=== PATIENT | female | born 1960 | race Caucasian/White ===

== ENCOUNTER 2018-11-22 10:31 | Day surgery (SDC) | payer OTHER, SELFPAY ==
[2018-11-22 10:56] VITALS: BP 117/77; PULSE 87; RESP 17; TEMP 37.1; O2SAT 95; BMI 29.6
[2018-11-22] MEDS: SODIUM CHLORIDE 0.9% 1,000 ML 100 ML IV (11:01)
--- NOTE | 2018-11-22 11:21 | P.HP_ITS ---
History of Present Illness Date Patient Seen: 11/22/18 Time Patient Seen: 11:19 Chief complaint: [id number] Narrative: Very pleasant and healthy 58-year-old lady who is here for screening colonoscopy. She reports her last colonoscopy was about 10 years ago and she had a benign polyp removed at that time. She denies any problems or symptoms related to the function of GI tract. She needs a colonoscopy as part of a health maintenance program Patient History Medical History Abnormal Pap smear of cervix (Chronic ~1989) Acne (Chronic ~1970) Anemia (Chronic) Ankle pain (Chronic ~2016) Benign familial tremor (Chronic) Cervical spine disease (Chronic) Colon polyps (Chronic ~2012) Depression (Chronic ~2006) Hay fever (Chronic ~2004) Hearing loss (Chronic ~2006) Osteoarthritis (Chronic) Plantar warts (Chronic ~1999) Shoulder pain (Chronic ~2006) Tinnitus (Chronic ~2006) Chicken pox (Resolved ~1962) History of basal cell carcinoma (BCC) of skin (Resolved 1989) Measles (Resolved) Mumps (Resolved) Surgical History Anesthesia (Resolved) BCC (basal cell carcinoma of skin) (Resolved 1989) History of eye surgery (Resolved ~2006) History of shoulder surgery (Resolved ~2007) History of varicose vein stripping (Resolved ~2008) Family History Father Kidney stones Intestinal bleeding Cancer Stroke Mother Glaucoma Heart disease History of angioplasty Hypertension Sister Hypothyroidism Brother Osteoarthritis Brother HIV antibody positive Social History household members: children lives independently: Yes caregiver/support person: No housing: house pets and animals: Yes (Cat) education level: college occupational status: employed current occupational exposures/hazards: No seatbelt use: always Smoking Status: Never smoker second hand exposure: No alcohol intake: current substance use type: does not use Family & Social History Family History Father Kidney stones Intestinal bleeding Cancer Stroke Mother Glaucoma Heart disease History of angioplasty Hypertension Sister Hypothyroidism Brother Osteoarthritis Brother HIV antibody positive Social History: household members children lives independently Yes caregiver/support person No Tobacco & Substance use: Smoking Status Never smoker alcohol intake current Meds Home Medications Medication Instructions Recorded Confirmed Type benzonatate [Tessalon Perles] 100 mg PO BIDP PRN #30 cap 11/06/17 Rx Allergies Allergy/AdvReac Type Severity Reaction Status Date / Time No Known Allergies Allergy Uncoded 11/22/18 10:52 Review of Systems Review of Systems All systems reviewed & are unremarkable except as noted in HPI and below Exam Vital Signs (past 8 hours): - 11/22/18 10:56 Temperature 98.8 F Pulse Rate 87 Respiratory Rate 17 Blood Pressure 117/77 Pulse Oximetry 95 Oxygen Delivery Method Room Air Narrative Exam Narrative: Pleasant, well nourished and well developed lady in no obvious distress HEENT: NCAT, PERRLA, EOMI Lungs: Clear to auscultation bilaterally Heart: Regular rate and rhythm without murmur rub or gallop Abdomen: Soft, nontender, active bowel sounds Extremities: Warm and well-perfused and without edema Assessment & Plan Assessment & Plan narrative: Very pleasant 58-year-old lady with a personal history of a small polyp removed at her last colonoscopy 10 years ago. We disc ussed the risks and benefits of colonoscopy with possible polypectomy today. The patient expressed an understanding of the risks and desired to complete the procedure.
[2018-11-22] MEDS: MIDAZOLAM 5 MG/5 ML VIAL IV (11:36)
[2018-11-22] MEDS: fentaNYL 250 MCG/5 ML INJ IV (11:37)
[2018-11-22 11:50] VITALS: BP 119/54; PULSE 83; RESP 18; TEMP 36.5; O2SAT 94
--- NOTE | 2018-11-22 11:50 | P.OP_ITS ---
Operative Date/Time/Diagnoses Date of procedure: 11/22/18 Time of procedure: 11:47 Pre-op diagnosis: Personal History of Colon Polyps Post-op diagnosis: same Procedure & Clinicians Procedure: Colonoscopy to the cecum Same procedure as scheduled: Yes Indications: Last Colonoscopy 10 years ago Surgeon: Sowmya Soto Click Yes if Unassisted: Yes Anesthesia Type: Sedation (Versed 10 mg, Fentanyl 250 mcg) Operative Notes Findings: 1. Excellent prep 2. No polyps or mass lesions 3. No AV malformations 4. Diverticulosis with primarily small pockets limited to the sigmoid region 5. Grade 1 internal hemorrhoids 6. Normal colonoscopy for age Closure Type: not applicable Specimen(s): none sent Procedure in detail: After obtaining informed consent, the patient was brought to the GI suite and placed in the left lateral decubitus position on the examination table. After placement of appropriate monitors, the patient was given incremental doses of Versed and Fentanyl until an appropriate level of sedation was achieved. A time out was held per SCOAP protocol. A digital rectal examination was performed and did not reveal any masses or obstructing lesions. The colonoscope was gently passed into the patient's anus and the entire colon navigated to the level of the cecum with minimal difficult y. Once in the cecum, the scope was withdrawn being sure to go before and beyond all mucosal folds and prominences and get an excellent examination. The findings are noted above. At the level of the rectal vault, the scope was retroflexed and the internal anal canal was examined. The scope was straightened and air aspirated from the colon. The instrument was removed from the patient's body and the procedure was concluded. The patient was allowed to awaken from sedation without difficulty and taken to the post-anesthesia care unit in good condition. Total sedation time 24 min Total withdrawal time 7 min Complications: none Condition: stable Disposition: PACU Plan for aftercare: 1. Discharge to home 2. Plan for next colonoscopy in 5 years due to the patient's history of polyps
[2018-11-22 11:55] VITALS: BP 101/65; PULSE 84; RESP 18; TEMP 36.5; O2SAT 94
[2018-11-22 12:00] VITALS: BP 107/76; PULSE 98; RESP 10; TEMP 36.4; O2SAT 100
[2018-11-22 12:04] VITALS: BP 121/72; PULSE 79; RESP 17; TEMP 36.1; O2SAT 97
[2018-11-22 12:30] VITALS: BP 122/73; PULSE 75; RESP 15; TEMP 36.1; O2SAT 99
== END 2018-11-22 12:37 | disposition home or self-care (01) ==
PROVIDERS: PCP Family Medicine; Visit Provider Surgery
PROC: 0DJD8ZZ Inspection of Lower Intestinal Tract, Via Natural or Artificial Opening Endoscopic (ICD-10-PCS; CPT 45378; principal; 2018-11-22 11:45)
DX: Z86.010 Personal history of colon polyps (principal); K57.30 Diverticulosis of large intestine without perforation or abscess without bleeding; K64.0 First degree hemorrhoids
CPT/HCPCS: 45378; 99152; 99153; J2250; J3010

== ENCOUNTER → 2019-04-11 08:45 | Outpatient (CLI) | payer OTHER, SELFPAY ==
[2019-04-11 08:53] LABS: Bacteria Urine None Seen; RBC Urine None Seen (0-5/HPF); WBC Urine None Seen (0-5/HPF)
[2019-04-11 09:15] LABS: Appearance Urine UA CLEAR; Bilirubin Urine UA NEGATIVE (NEGATIVE); Color Urine UA YELLOW; Glucose Urine UA NEGATIVE (Negative); Ketones Urine UA NEGATIVE (NEGATIVE); Leukocyte Esterase Urine UA NEGATIVE (NEGATIVE); Nitrite Urine UA NEGATIVE (Negative); Occult Blood Urine UA NEGATIVE (Negative); Protein Urine UA NEGATIVE (Negative); Urobilinogen Urine UA 0.2 E.U./dL (0.2)
[2019-04-11 09:17] LABS: Hematocrit 39.2 % (36-46); Hemoglobin 13.6 g/dL (12.0-16.0); Mean Corpuscular HGB Conc 34.8 % (30-36); Mean Corpuscular Hemoglobin 32.3 PG (26-34); Mean Corpuscular Volume 92.7 fL (80-100); Platelet Count 268 X10^3/uL (150-400); Red Blood Cell Count 4.23 X10^6/uL (4.0-5.2); Red Cell Distribution Width 12.7 % (11.6-14.8); White Blood Cell Count 4.9 X10^3/uL (4.5-11.0)
[2019-04-11 09:33] LABS: Culture Indicated Urine Cult Not Indicated
[2019-04-11 09:50] LABS: Alanine Aminotransferase 34 IU/L (9-52); Albumin 4.2 g/dL (3.5-5.0); Albumin Globulin Ratio 1.6 (1.0-2.8); Alkaline Phosphatase 61 U/L (38-126); Aspartate Aminotransferase 26 IU/L (14-36); BUN Creatinine Ratio 23.3 (6-22); Bilirubin Total 0.8 mg/dL (0.2-1.3); Blood Urea Nitrogen 14 mg/dL (7-17); Calcium 9.7 mg/dL (8.4-10.2); Carbon Dioxide 28 mmol/L (22-32); Chloride 100 mmol/L (98-107); Cholesterol 194 mg/dL (140-199); Estimated Glomerular Filt Rate > 60.0 mL/min (>60); Globulin 2.6 g/dL (1.7-4.1); Glucose 100 mg/dL (80-110); HDL Cholesterol 68 mg/dL (40-60); HEMOLYSIS < 15 (0-50); LDL Cholesterol Calculated 89 mg/dL (<100); Potassium 4.2 mmol/L (3.4-5.1); Sodium 136 mmol/L (137-145); Total Protein 6.8 g/dL (6.3-8.2); Triglycerides 187 mg/dL (35-150)
== END ==
PROVIDERS: PCP Family Medicine; Visit Provider Nurse Practitioner Family
DX: Z00.00 Encounter for general adult medical examination without abnormal findings (principal); Z13.6 Encounter for screening for cardiovascular disorders
CPT/HCPCS: 36415; 80053; 80061; 81001; 85027

== ENCOUNTER → 2019-07-11 16:53 | Outpatient (CLI) | payer OTHER, SELFPAY ==
--- NOTE | 2019-07-11 16:55 | DI.MG.S_ITS ---
BILATERAL DIGITAL SCREENING MAMMOGRAM 3D/2D WITH CAD: 07/11/2019 CLINICAL: Routine screening. Comparison is made to exams dated: 05/10/2012 mammogram and 07/08/2015 mammogram - [facility]. There are scattered fibroglandular elements in both breasts. Current study was also evaluated with a Computer Aided Detection (CAD) system. There is a possible new 0.3 cm oval asymmetry in the left breast anterior depth central to the nipple seen on the craniocaudal view only. No other significant masses, calcifications, or other findings are seen in either breast. IMPRESSION: INCOMPLETE: NEEDS ADDITIONAL IMAGING EVALUATION The possible new 0.3 cm oval asymmetry in the left breast is indeterminate. Additional views with possible ultrasound are recommended. This exam was interpreted at Station ID: [id number]. NOTE: For mammograms, a report in lay terms will be sent to the patient. Approximately 15% of breast malignancies will not be visualized mammographically. In the management of a palpable breast mass, a negative mammogram must not discourage biopsy of a clinically suspicious lesion. Electronically Signed By: J Luis chase/gina:07/12/2019 07:48:48 letter sent: Additional Imaging Needed ACR BI-RADS Category 0: Incomplete [id number]
== END ==
PROVIDERS: Family Provider Family Medicine; PCP Family Medicine; Visit Provider Nurse Practitioner Family
DX: Z12.31 Encounter for screening mammogram for malignant neoplasm of breast (principal)
CPT/HCPCS: 77063; 77067

== ENCOUNTER → 2019-07-22 08:55 | Outpatient (CLI) | payer OTHER, SELFPAY ==
--- NOTE | 2019-07-22 | DI.MG.S_ITS ---
UNILATERAL LEFT DIGITAL DIAGNOSTIC MAMMOGRAM 3D/2D WITH ADDITIONAL VIEWS: 07/22/2019 CLINICAL: Additional evaluation requested from prior study. Comparison is made to exams dated: 07/11/2019 mammogram - [facility], 07/08/2015 mammogram, and 05/10/2012 mammogram - [facility]. There are scattered fibroglandular elements in left breast. The possible 0.3 cm oval asymmetry in the left breast anterior depth central to the nipple seen on the craniocaudal view only is not reproduced and presumably represented superimposed breast tissue. No other significant masses or calcifications are seen in the breast. IMPRESSION: INCOMPLETE: NEEDS ADDITIONAL IMAGING EVALUATION An ultrasound is recommended to confirm the no longer seen oval asymmetry in the left breast anterior depth central to the nipple seen on the craniocaudal view only which is scheduled to immediately follow this examination. This exam was interpreted at Station ID: [id number]. NOTE: For mammograms, a report in lay terms will be sent to the patient. Approximately 15% of breast malignancies will not be visualized mammographically. In the management of a palpable breast mass, a negative mammogram must not discourage biopsy of a clinically suspicious lesion. Electronically Signed By: J Luis Connell M.D. aty/:07/22/2019 10:20:01 ACR BI-RADS Category 0: Incomplete [id number]
--- NOTE | 2019-07-22 08:56 | DI.US.S_ITS ---
ULTRASOUND OF LEFT BREAST: 07/22/2019 CLINICAL: Patient returns today to evaluate a focal asymmetry in the left breast. Comparison is made to exams dated: 07/22/2019 mammogram, 07/11/2019 mammogram - [facility], 07/08/2015 mammogram, and 05/10/2012 mammogram - [facility]. Real-time ultrasound of the left breast was performed. Godoy scale images of the real-time examination were reviewed. No significant abnormalities were seen sonographically in the left breast. IMPRESSION: NEGATIVE There is no abnormality seen in the left breast to correspond with the mammography finding which is consistent with normal fibroglandular tissue. There is no sonographic evidence of malignancy. A 1 year screening mammogram is recommended. This exam was interpreted at Station ID: [id number]. Electronically Signed By: J Luis Connell M.D. aty/:07/22/2019 10:20:54 letter sent: Normal Exam Ultrasound BI-RADS: 1 Negative
== END ==
PROVIDERS: PCP Family Medicine; Visit Provider Nurse Practitioner Family
DX: R92.8 Other abnormal and inconclusive findings on diagnostic imaging of breast (principal)
CPT/HCPCS: 76642; 77065; G0279

== ENCOUNTER → 2020-03-20 11:45 | Outpatient (CLI) | payer OTHER, SELFPAY ==
[2020-03-20 13:02] LABS: Add Manual Diff / Slide Review NO; Basophils Absolute Auto 100 /uL (0-100); Eosinophils Absolute Auto 100 /uL (0-450); Eosinophils Percent Auto 1.5 % (2-4); Hematocrit 39.5 % (36-46); Hemoglobin 13.7 g/dL (12.0-16.0); Lymphocytes Absolute Auto 1900 /uL (1100-4500); Lymphocytes Percent Auto 36.9 % (25-40); Mean Corpuscular HGB Conc 34.8 % (30-36); Mean Corpuscular Hemoglobin 32.4 PG (26-34); Mean Corpuscular Volume 93.3 fL (80-100); Monocytes Absolute Auto 200 /uL (0-900); Monocytes Percent Auto 4.6 % (3-14); Neutrophils Absolute Auto 2900 /uL (1500-7000); Platelet Count 270 X10^3/uL (150-400); Red Blood Cell Count 4.23 X10^6/uL (4.0-5.2); Red Cell Distribution Width 12.8 % (11.6-14.8); White Blood Cell Count 5.1 X10^3/uL (4.5-11.0)
[2020-03-20 13:17] LABS: Alanine Aminotransferase 28 IU/L (<35); Albumin 4.4 g/dL (3.5-5.0); Albumin Globulin Ratio 1.8 (1.0-2.8); Alkaline Phosphatase 69 U/L (38-126); Aspartate Aminotransferase 28 IU/L (14-36); BUN Creatinine Ratio 22.4 (6-22); Bilirubin Total 0.7 mg/dL (0.2-1.3); Blood Urea Nitrogen 13 mg/dL (7-17); Calcium 9.7 mg/dL (8.4-10.2); Carbon Dioxide 23 mmol/L (22-32); Chloride 103 mmol/L (98-107); Cholesterol 198 mg/dL (140-199); Estimated Glomerular Filt Rate > 60.0 mL/min (>60); Globulin 2.5 g/dL (1.7-4.1); Glucose 93 mg/dL (80-110); HDL Cholesterol 82 mg/dL (40-60); HEMOLYSIS < 15 (0-50); LDL Cholesterol Calculated 92 mg/dL (<100); Potassium 4.1 mmol/L (3.4-5.1); Sodium 135 mmol/L (137-145); Total Protein 6.9 g/dL (6.3-8.2); Triglycerides 120 mg/dL (35-150)
[2020-03-20 13:34] LABS: Free T3, Triiodothyronine Free 3.42 pg/mL (2.77-5.27); Free T4, Direct Thyroxine 1.07 ng/dL (0.78-2.19)
[2020-03-20 13:48] LABS: Thyroid Stimulating Hormone 2.04 uIU/mL (0.47-4.68)
[2020-03-20 13:51] LABS: Ferritin 65 ng/mL (11-264)
[2020-03-21 06:08] LABS: Thyroid Peroxidase Antibodies <9 IU/mL (0-34)
== END ==
PROVIDERS: PCP Family Medicine; Referring Provider Naturopath; Visit Provider Naturopath
DX: Z00.00 Encounter for general adult medical examination without abnormal findings (principal); R53.83 Other fatigue
CPT/HCPCS: 36415; 80053; 80061; 82728; 84439; 84443; 84481; 85025; 86376

== ENCOUNTER 2021-07-15 10:30 | Outpatient (RCR) | payer OTHER, SELFPAY ==
--- NOTE | 2021-06-24 15:58 | PT.OIE ---
Current Diagnoses Strain of right Achilles tendon, initial encounter (06/24/21) Past Medical History (Last Reviewed 07/22/19 @ 12:07 by LEA Reyes) Abnormal Pap smear of cervix (~1989) Acne (~1970) Anemia Ankle pain (~2016) Benign familial tremor Cervical spine disease (~2009) Chicken pox (~1962) Colon polyps (~2013) Depression (~2007) Fibroids Hay fever (~2005) Hearing loss (~2006) History of basal cell carcinoma (BCC) of skin (1989) History of eye surgery (~2006) History of shoulder surgery (~2007) History of urinary incontinence History of varicose vein stripping (~2008) Measles Mumps Osteoarthritis (~2009) Plantar warts (~1999) Shoulder pain (~2006) Tinnitus (~2006) Past Surgical History (Last Reviewed 07/22/19 @ 12:07 by LEA Reyes) Anesthesia BCC (basal cell carcinoma of skin) (1989) History of eye surgery (~2006) History of shoulder surgery (~2007) History of varicose vein stripping (~2008) Visit Care Team Role Provider Type Rosa Holbrook MD Attending Provider Physician Primary Care Provider Referring Provider Specialty: [facility] Address: [address] [place] [address], [facility] Email: [email or web address] Physical Therapy Initial Evaluation PT-OP-A Visit Information Start: 06/24/21 15:31 Freq: Status: Active Protocol: Document 06/24/21 15:38 (Rec: 06/24/21 15:58 [email or web address]) Out-Patient Physical Therapy Visit Information Visit Information Visit Type Initial Evaluation Visit Start Time 10:30 Visit Stop Time 11:15 Total Visit Minutes 45 Visit Number 1/45 Number of COOKER SULFITE Visits 0 Evaluation Information Evaluation Date 06/24/21 Precautions Precautions depression PT-OP-B Current Condition Start: 06/24/21 15:31 Freq: Status: Active Protocol: Document 06/24/21 15:38 HH (Rec: 06/24/21 15:58 [email or web address]) Current Condition History of Current Condition Onset Date this summer Current Complaints R achilles pain, difficulty to walk History of Current Condition Cookie is a 61yo female here for her R achilles pain since this summer without known injury. She started having a bump at mid section of R achilles and progressively hurting more with walking or wearing shoes with hard heel support. Her pain is the worst in the morning when she takes the first step. She has been doing calf stretches and heel raises so her symptoms have been getting better. She would like to walk 2-3 miles x4 / week and able to play tag with her grand kids. Personal Factors Other Personal Factors That May Effect depression Therapy/Recovery PT-OP-C Subjective Start: 06/24/21 15:31 Freq: Status: Active Protocol: Document 06/24/21 15:38 HH (Rec: 06/24/21 15:58 HH [email or web address]) Patient Questionnaires Foot & Ankle Ability Measure- ADL and Sports FAAM-ADL Score 64 FAAM-ADL Impairment 20 to 39% Impaired (Score 50- 66) FAAM-Sport Score 9 FAAM-Sport Impairment 60 to 79% Impaired (Score 6-11 ) Lower Extremity Functional Scale LEFS Score 60 LEFS Impairment 20 to 39% Impaired (Score 48- 62) OP-PT Pain Assessment Location r heel Pain Location Details achilles (mid section) Intensity 4 Scale Used Numeric (0 - 10) Description Aching Frequency Frequent Pain Aggravating Factors Exercise,Standing,Walking Pain Alleviating Factors Inactivity PT-OP-D Balance Start: 06/24/21 15:31 Freq: Status: Active Protocol: Document 06/24/21 15:38 HH (Rec: 06/24/21 15:58 HH [email or web address]) Balance Tests Single Limb Standing Single Limb- Right >30 Single Limb- Left >30 PT-OP-F Manual Assessment Start: 06/24/21 15:31 Freq: Status: Active Protocol: Document 06/24/21 15:38 HH (Rec: 06/24/21 15:58 HH [email or web address]) Manual Assessments Soft Tissue Assessment Soft Tissue Mobility Assessment tenderness at mid achilles Joint Mobility Assessment Joint Mobility Assessment ankle joint WFL bilaterally PT-OP-G Mobility & Gait Start: 06/24/21 15:31 Freq: Status: Active Protocol: Document 06/24/21 15:38 HH (Rec: 06/24/21 15:58 HH [email or web address]) OP Gait Assessment Comments Gait Comments moderately hard heel strike bilaterally. symmetrical gait pattern. PT-OP-H Neuro Start: 06/24/21 15:31 Freq: Status: Active Protocol: Document 06/24/21 15:38 (Rec: 06/24/21 15:58 [email or web address]) Sensation Evaluation Gross Sensation Gross Sensation WNL Deep Tendon Reflex & Clonus Assessment Deep Tendon Reflex Bilateral Achilles Deep Tendon Reflex 2+ Normal PT-OP-K Range of Motion Start: 06/24/21 15:31 Freq: Status: Active Protocol: Document 06/24/21 15:38 (Rec: 06/24/21 15:58 [email or web address]) Hip Goniometric Range of Motion Hip Left Active Straight Leg Raise 93 Right Active Straight Leg Raise 92 Ankle and Foot Goniometric Range of Motion Ankle and Foot Right Active Ankle/Foot ROM WFL Yes Testing Position Supine Dorsiflexion with Knee Flexed 18 Dorsiflexion with Knee Extended 8 Plantarflexion 58 Inversion 55 Eversion 25 Left Active Ankle/Foot ROM WFL Yes Testing Position Supine Dorsiflexion with Knee Flexed 22 Dorsiflexion with Knee Extended 18 Plantarflexion 43 Inversion 43 Eversion 28 Toe Range of Motion Toe Left Great Toe Toe ROM WFL Yes Right Great Toe Toe ROM WFL Yes PT-OP-M Strength Start: 06/24/21 15:31 Freq: Status: Active Protocol: Document 06/24/21 15:38 (Rec: 06/24/21 15:58 [email or web address]) Hip Strength Hip Manual Muscle Testing Right Flexion (L2) 4+ Good+ Extension (S1) 4+ Good+ Abduction 4+ Good+ Left Flexion (L2) 4+ Good+ Extension (S1) 4+ Good+ Abduction 4+ Good+ Ankle/Foot Strength Ankle and Foot Manual Muscle Testing Right Dorsiflexion (L4) 5 Normal Plantarflexion (S1) 4 Good Inversion 5 Normal Eversion (S1) 5 Normal Comments SL calf raise= 9 times Left Dorsiflexion (L4) 5 Normal Plantarflexion (S1) 5 Normal Inversion 5 Normal Eversion (S1) 5 Normal Comments SL calf raise= 14 times PT-OP-Q Treatments Start: 06/24/21 15:31 Freq: Status: Active Protocol: Document 06/24/21 15:38 (Rec: 06/24/21 15:58 [email or web address]) Therapeutic Exercises Standing Exercises calf stretch Side bilateral Comments for HEP heel raises Standing Exercise Name neutral feet position Side bilateral Reps/Minutes 15x3 Comments for hEP PT-OP-T Assessment and Plan Start: 06/24/21 15:31 Freq: Status: Active Protocol: Document 06/24/21 15:38 (Rec: 06/24/21 15:58 [email or web address]) Physical Therapy Assessment Rehab Potential Rehabilitation Potential Excellent Evaluation Complexity Number of Personal Factors/Comorbidities 1-2 Number of Body Systems Impaired 1-2 Clinical Presentation at Evaluation Stable Impairments Impairments Activity Tolerance,Balance, Edema,Functional Activities, Functional Mobility,Gait,Pain, Posture,ROM,Soft Tissue Mobility,Strength Goals calf strength Impairment R = 9 times Saw Maker Goal (LTG) pt will be able to complete > 15 times SL heel raise to improved push off and eccentric loading from running . LTG Duration 6 weeks FAAM Impairment pt scores 64 and9 on FAAM Prison Goal (LTG) pt will score >70 on FAAM to show improved ankle strength and mobility LTG Duration 6 weeks LEFS Impairment pt scores 60 on LEFS Short Term Goal (STG) pt will show improved SL stability and strength to score >65 on LEFS STG Duration 3weeks Saw Maker Goal (LTG) pt will show improved SL stability and strength to score >70 on LEFS in order for her to play tag with her grandkids LTG Duration 6 weeks Assessment Summary Assessment Pt is a 61 yo female here for her R heel pain since this summer without known injury. Upon assessment, pt shows signs of mid section achilles tendonopathy. She does have good ankle ROM, balance and strength except SL heel raise= 9 times (L=14). She has been getting better since last month with self stretches and calf raises. I recommended her to practice prior to sleep to improve ankle stiffness in the morning. Also recommended her to wear shoes with mod heel support and heel drop to reduce achilles loading. Requested her to bring her footwear to check her gait next visit. This will be a short rehab based on her symptoms and progression and she will benefit from skilled therapy to improve her tendon strength which allows her to play tag with her grandkids. Physical Therapy Plan Frequency and Duration Frequency of Treatment 1x/Week Duration of Treatment 6 weeks Plan of Care Start Date 06/24/21 Plan of Care End Date 08/08/21 Therapeutic Interventions Therapeutic Interventions Balance Training,Gait Training ,Home Exercise Program,Joint Mobilizations,Manual Therapy, Neuromuscular Re-education, Orthotic/Prosthetic Management ,Patient/Caregiver Education, Self-Care/Home Management,Soft Tissue Mobilization,Taping, Therapeutic Activities, Therapeutic Exercises Modalities Cold Pack/Ice Massage,Electric Stimulation,Hot Packs, Infrared Therapy,Ultrasound Next Visit Focus/Plan Next Note Type Treatment Note Next Visit Plan gait assessment check shoewear calf raise SL balance, step up.
--- NOTE | 2021-06-24 15:59 | PT.OPPOC ---
Physical, Occupational & Speech Therapy At [facility] Current Diagnoses Strain of right Achilles tendon, initial encounter (06/24/21) Visit Care Team Role Provider Type Rosa Holbrook MD Attending Provider Physician Primary Care Provider Referring Provider Specialty: Family Practice Address: [address] [place] [address], [place], [address] Email: [email or web address] Plan Of Care PT-OP-T Assessment and Plan Start: 06/24/21 15:31 Freq: Status: Active Protocol: Document 06/24/21 15:38 HH (Rec: 06/24/21 15:58 HH [email or web address]) Physical Therapy Assessment Rehab Potential Rehabilitation Potential Excellent Evaluation Complexity Number of Personal Factors/Comorbidities 1-2 Number of Body Systems Impaired 1-2 Clinical Presentation at Evaluation Stable Impairments Impairments Activity Tolerance,Balance, Edema,Functional Activities, Functional Mobility,Gait,Pain, Posture,ROM,Soft Tissue Mobility,Strength Goals calf strength Impairment R = 9 times Halfway Goal (LTG) pt will be able to complete > 15 times SL heel raise to improved push off and eccentric loading from running . LTG Duration 6 weeks FAAM Impairment pt scores 64 and9 on FAAM Halfway Goal (LTG) pt will score >70 on FAAM to show improved ankle strength and mobility LTG Duration 6 weeks LEFS Impairment pt scores 60 on LEFS Short Term Goal (STG) pt will show improved SL stability and strength to score >65 on LEFS STG Duration 3weeks C D Still Operator Goal (LTG) pt will show improved SL stability and strength to score >70 on LEFS in order for her to play tag with her grandkids LTG Duration 6 weeks Assessment Summary Assessment Pt is a 61 yo female here for her R heel pain since this summer without known injury. Upon assessment, pt shows signs of mid section achilles tendonopathy. She does have good ankle ROM, balance and strength except SL heel raise= 9 times (L=14). She has been getting better since last month with self stretches and calf raises. I recommended her to practice prior to sleep to improve ankle stiffness in the morning. Also recommended her to wear shoes with mod heel support and heel drop to reduce achilles loading. Requested her to bring her footwear to check her gait next visit. This will be a short rehab based on her symptoms and progression and she will benefit from skilled therapy to improve her tendon strength which allows her to play tag with her grandkids. Physical Therapy Plan Frequency and Duration Frequency of Treatment 1x/Week Duration of Treatment 6 weeks Plan of Care Start Date 06/24/21 Plan of Care End Date 08/08/21 Therapeutic Interventions Therapeutic Interventions Balance Training,Gait Training ,Home Exercise Program,Joint Mobilizations,Manual Therapy, Neuromuscular Re-education, Orthotic/Prosthetic Management ,Patient/Caregiver Education, Self-Care/Home Management,Soft Tissue Mobilization,Taping, Therapeutic Activities, Therapeutic Exercises Modalities Cold Pack/Ice Massage,Electric Stimulation,Hot Packs, Infrared Therapy,Ultrasound Next Visit Focus/Plan Next Note Type Treatment Note Next Visit Plan gait assessment check shoewear calf raise SL balance, step up. Plan of Care Dates Plan of Care Start Date 06/24/21 Plan of Care End Date 08/08/21 Electronically Signed by: Orly Luis, PT 06/24/21 0622 Please Sign and Return: I have reviewed this Plan of Care and certify that the skilled therapy services above are required to meet the patient?s needs. Physician Signature Date Printed Name and Credentials Clinical Instructor Signature Printed Name and Credentials
--- NOTE | 2021-07-01 09:43 | PT.OTN ---
Current Diagnoses Strain of right Achilles tendon, initial encounter (07/01/21) Physical Therapy Treatment Note PT-OP-A Visit Information Start: 06/24/21 15:31 Freq: Status: Active Protocol: Document 07/01/21 08:47 HH (Rec: 07/01/21 09:43 [id number]) Out-Patient Physical Therapy Visit Information Visit Information Visit Type Treatment Note Visit Start Time 09:02 Visit Stop Time 09:45 Total Visit Minutes 43 Visit Number 2/45 Number of WINDOW SYSTEMS ADMINISTRATOR Visits 0 PT-OP-B Current Condition Start: 06/24/21 15:31 Freq: Status: Active Protocol: Document 06/24/21 15:38 HH (Rec: 06/24/21 15:58 HH [email or web address]) Current Condition History of Current Condition Onset Date this summer Current Complaints R achilles pain, difficulty to walk History of Current Condition Cookie is a 61yo female here for her R achilles pain since this summer without known injury. She started having a bump at mid section of R achilles and progressively hurting more with walking or wearing shoes with hard heel support. Her pain is the worst in the morning when she takes the first step. She has been doing calf stretches and heel raises so her symptoms have been getting better. She would like to walk 2-3 miles x4 / week and able to play tag with her grand kids. Personal Factors Other Personal Factors That May Effect depression Therapy/Recovery PT-OP-C Subjective Start: 06/24/21 15:31 Freq: Status: Active Protocol: Document 07/01/21 08:47 HH (Rec: 07/01/21 09:43 [id number]) OP-PT Subjective Patient Comments Patient Comments Its getting better but its getting stronger slowly. My morning stiffness is a lot less as well. Patient Reported Progress Improving PT-OP-D Balance Start: 06/24/21 15:31 Freq: Status: Active Protocol: Document 06/24/21 15:38 HH (Rec: 06/24/21 15:58 HH [email or web address]) Balance Tests Single Limb Standing Single Limb- Right >30 Single Limb- Left >30 PT-OP-F Manual Assessment Start: 06/24/21 15:31 Freq: Status: Active Protocol: Document 06/24/21 15:38 HH (Rec: 06/24/21 15:58 HH [email or web address]) Manual Assessments Soft Tissue Assessment Soft Tissue Mobility Assessment tenderness at mid achilles Joint Mobility Assessment Joint Mobility Assessment ankle joint WFL bilaterally PT-OP-G Mobility & Gait Start: 06/24/21 15:31 Freq: Status: Active Protocol: Document 06/24/21 15:38 HH (Rec: 06/24/21 15:58 HH [email or web address]) OP Gait Assessment Comments Gait Comments moderately hard heel strike bilaterally. symmetrical gait pattern. PT-OP-H Neuro Start: 06/24/21 15:31 Freq: Status: Active Protocol: Document 06/24/21 15:38 HH (Rec: 06/24/21 15:58 HH [email or web address]) Sensation Evaluation Gross Sensation Gross Sensation WNL Deep Tendon Reflex & Clonus Assessment Deep Tendon Reflex Bilateral Achilles Deep Tendon Reflex 2+ Normal PT-OP-K Range of Motion Start: 06/24/21 15:31 Freq: Status: Active Protocol: Document 06/24/21 15:38 HH (Rec: 06/24/21 15:58 [email or web address]) Hip Goniometric Range of Motion Hip Left Active Straight Leg Raise 93 Right Active Straight Leg Raise 92 Ankle and Foot Goniometric Range of Motion Ankle and Foot Right Active Ankle/Foot ROM WFL Yes Testing Position Supine Dorsiflexion with Knee Flexed 18 Dorsiflexion with Knee Extended 8 Plantarflexion 58 Inversion 55 Eversion 25 Left Active Ankle/Foot ROM WFL Yes Testing Position Supine Dorsiflexion with Knee Flexed 22 Dorsiflexion with Knee Extended 18 Plantarflexion 43 Inversion 43 Eversion 28 Toe Range of Motion Toe Left Great Toe Toe ROM WFL Yes Right Great Toe Toe ROM WFL Yes PT-OP-M Strength Start: 06/24/21 15:31 Freq: Status: Active Protocol: Document 06/24/21 15:38 HH (Rec: 06/24/21 15:58 [email or web address]) Hip Strength Hip Manual Muscle Testing Right Flexion (L2) 4+ Good+ Extension (S1) 4+ Good+ Abduction 4+ Good+ Left Flexion (L2) 4+ Good+ Extension (S1) 4+ Good+ Abduction 4+ Good+ Ankle/Foot Strength Ankle and Foot Manual Muscle Testing Right Dorsiflexion (L4) 5 Normal Plantarflexion (S1) 4 Good Inversion 5 Normal Eversion (S1) 5 Normal Comments SL calf raise= 9 times Left Dorsiflexion (L4) 5 Normal Plantarflexion (S1) 5 Normal Inversion 5 Normal Eversion (S1) 5 Normal Comments SL calf raise= 14 times PT-OP-Q Treatments Start: 06/24/21 15:31 Freq: Status: Active Protocol: Document 07/01/21 08:47 (Rec: 07/01/21 09:43 [id number]) Therapeutic Exercises Standing Exercises air squat Reps/Minutes 10 x2 Comments for hEP toe raises Standing Exercise Name back against wall Side bilateral Reps/Minutes 10 x2 calf stretch Standing Exercise Name neutral foot position Side bilateral Comments for HEP heel raises Standing Exercise Name bilateral then SL for eccentric Side bilateral Reps/Minutes 12 x 2 Comments for hEP Manual Therapy Treatment Soft Tissue Mobilization calf Body Location +achilles Mobilization Type Myofascial Release Intensity/Depth Moderate Comments slight tenderness noted only. PT-OP-T Assessment and Plan Start: 06/24/21 15:31 Freq: Status: Active Protocol: Document 07/01/21 08:47 (Rec: 07/01/21 09:43 [id number]) Physical Therapy Assessment Goals calf strength Impairment R = 9 times Database Management Specialist Goal (LTG) pt will be able to complete > 15 times SL heel raise to improved push off and eccentric loading from running . LTG Duration 6 weeks FAAM Impairment pt scores 64 and9 on FAAM Database Management Specialist Goal (LTG) pt will score >70 on FAAM to show improved ankle strength and mobility LTG Duration 6 weeks LEFS Impairment pt scores 60 on LEFS Short Term Goal (STG) pt will show improved SL stability and strength to score >65 on LEFS STG Duration 3weeks Database Management Specialist Goal (LTG) pt will show improved SL stability and strength to score >70 on LEFS in order for her to play tag with her grandkids LTG Duration 6 weeks Assessment Summary Assessment pt is doing very well with reduced pain and stiffness. She can tolerate bilatearl calf raise >20 times and i recommended her to start doing eccentric lowering with 1 leg . Will check with her in 2 weeks and possible DC. Physical Therapy Plan Frequency and Duration Frequency of Treatment 1x/Week Duration of Treatment 6 weeks Plan of Care Start Date 06/24/21 Plan of Care End Date 08/08/21 Therapeutic Interventions Therapeutic Interventions Balance Training,Gait Training ,Home Exercise Program,Joint Mobilizations,Manual Therapy, Neuromuscular Re-education, Orthotic/Prosthetic Management ,Patient/Caregiver Education, Self-Care/Home Management,Soft Tissue Mobilization,Taping, Therapeutic Activities, Therapeutic Exercises Modalities Cold Pack/Ice Massage,Electric Stimulation,Hot Packs, Infrared Therapy,Ultrasound Next Visit Focus/Plan Next Note Type Treatment Note Next Visit Plan gait assessment check shoewear calf raise SL balance, step up.
--- NOTE | 2021-07-15 11:14 | PT.OTN ---
Current Diagnoses Strain of right Achilles tendon, initial encounter (07/15/21) Physical Therapy Treatment Note PT-OP-A Visit Information Start: 06/24/21 15:31 Freq: Status: Active Protocol: Document 07/15/21 10:32 HH (Rec: 07/15/21 11:14 [id number]) Out-Patient Physical Therapy Visit Information Visit Information Visit Type Treatment Note Visit Start Time 10:30 Visit Stop Time 11:15 Total Visit Minutes 45 Visit Number 3/45 Number of PHARMACY SALES REPRESENTATIVE Visits 0 PT-OP-B Current Condition Start: 06/24/21 15:31 Freq: Status: Active Protocol: Document 06/24/21 15:38 HH (Rec: 06/24/21 15:58 [email or web address]) Current Condition History of Current Condition Onset Date this summer Current Complaints R achilles pain, difficulty to walk History of Current Condition Cookie is a 61yo female here for her R achilles pain since this summer without known injury. She started having a bump at mid section of R achilles and progressively hurting more with walking or wearing shoes with hard heel support. Her pain is the worst in the morning when she takes the first step. She has been doing calf stretches and heel raises so her symptoms have been getting better. She would like to walk 2-3 miles x4 / week and able to play tag with her grand kids. Personal Factors Other Personal Factors That May Effect depression Therapy/Recovery PT-OP-C Subjective Start: 06/24/21 15:31 Freq: Status: Active Protocol: Document 07/15/21 10:32 HH (Rec: 07/15/21 11:14 [id number]) OP-PT Subjective Patient Comments Patient Comments I had a flare up recently after i ran after a kid at school. I was okay to walk after. I was doing pretty good before that. Patient Reported Progress Improving PT-OP-D Balance Start: 06/24/21 15:31 Freq: Status: Active Protocol: Document 06/24/21 15:38 HH (Rec: 06/24/21 15:58 [email or web address]) Balance Tests Single Limb Standing Single Limb- Right >30 Single Limb- Left >30 PT-OP-F Manual Assessment Start: 06/24/21 15:31 Freq: Status: Active Protocol: Document 06/24/21 15:38 HH (Rec: 06/24/21 15:58 [email or web address]) Manual Assessments Soft Tissue Assessment Soft Tissue Mobility Assessment tenderness at mid achilles Joint Mobility Assessment Joint Mobility Assessment ankle joint WFL bilaterally PT-OP-G Mobility & Gait Start: 06/24/21 15:31 Freq: Status: Active Protocol: Document 06/24/21 15:38 HH (Rec: 06/24/21 15:58 [email or web address]) OP Gait Assessment Comments Gait Comments moderately hard heel strike bilaterally. symmetrical gait pattern. PT-OP-H Neuro Start: 06/24/21 15:31 Freq: Status: Active Protocol: Document 06/24/21 15:38 HH (Rec: 06/24/21 15:58 [email or web address]) Sensation Evaluation Gross Sensation Gross Sensation WNL Deep Tendon Reflex & Clonus Assessment Deep Tendon Reflex Bilateral Achilles Deep Tendon Reflex 2+ Normal PT-OP-K Range of Motion Start: 06/24/21 15:31 Freq: Status: Active Protocol: Document 06/24/21 15:38 HH (Rec: 06/24/21 15:58 [email or web address]) Hip Goniometric Range of Motion Hip Left Active Straight Leg Raise 93 Right Active Straight Leg Raise 92 Ankle and Foot Goniometric Range of Motion Ankle and Foot Right Active Ankle/Foot ROM WFL Yes Testing Position Supine Dorsiflexion with Knee Flexed 18 Dorsiflexion with Knee Extended 8 Plantarflexion 58 Inversion 55 Eversion 25 Left Active Ankle/Foot ROM WFL Yes Testing Position Supine Dorsiflexion with Knee Flexed 22 Dorsiflexion with Knee Extended 18 Plantarflexion 43 Inversion 43 Eversion 28 Toe Range of Motion Toe Left Great Toe Toe ROM WFL Yes Right Great Toe Toe ROM WFL Yes PT-OP-M Strength Start: 06/24/21 15:31 Freq: Status: Active Protocol: Document 06/24/21 15:38 HH (Rec: 06/24/21 15:58 [email or web address]) Hip Strength Hip Manual Muscle Testing Right Flexion (L2) 4+ Good+ Extension (S1) 4+ Good+ Abduction 4+ Good+ Left Flexion (L2) 4+ Good+ Extension (S1) 4+ Good+ Abduction 4+ Good+ Ankle/Foot Strength Ankle and Foot Manual Muscle Testing Right Dorsiflexion (L4) 5 Normal Plantarflexion (S1) 4 Good Inversion 5 Normal Eversion (S1) 5 Normal Comments SL calf raise= 9 times Left Dorsiflexion (L4) 5 Normal Plantarflexion (S1) 5 Normal Inversion 5 Normal Eversion (S1) 5 Normal Comments SL calf raise= 14 times PT-OP-Q Treatments Start: 06/24/21 15:31 Freq: Status: Active Protocol: Document 07/15/21 10:32 (Rec: 07/15/21 11:14 [id number]) Cardio Equipment Bicycle (Upright) Duration (Minutes) 7 Resistance 5 Therapeutic Exercises Supine Exercises ankle DF Side right Equipment Used level 5 band Reps/Minutes 10x2 Standing Exercises bouncing pylometrics Standing Exercise Name hopping on toes, then more weight on R Side bilateral heel raises Standing Exercise Name SL heel raise, incline to reduce body weight Side bilateral Reps/Minutes 12 x 2 Comments for hEP Manual Therapy Treatment Soft Tissue Mobilization calf Body Location +achilles Mobilization Type Myofascial Release Intensity/Depth Moderate Comments slight tenderness noted only. PT-OP-T Assessment and Plan Start: 06/24/21 15:31 Freq: Status: Active Protocol: Document 07/15/21 10:32 (Rec: 07/15/21 11:14 [id number]) Physical Therapy Assessment Goals calf strength Impairment R = 9 times Digital Forensics Investigator Goal (LTG) 07/15 goal met pt is able to complete >15 times SL heel raise to improved push off and eccentric loading from running . LTG Duration 6 weeks FAAM Impairment pt scores 64 and9 on FAAM Senior Living Goal (LTG) pt will score >70 on FAAM to show improved ankle strength and mobility LTG Duration 6 weeks LEFS Impairment pt scores 60 on LEFS Short Term Goal (STG) pt will show improved SL stability and strength to score >65 on LEFS STG Duration 3weeks Senior Living Goal (LTG) pt will show improved SL stability and strength to score >70 on LEFS in order for her to play tag with her grandkids LTG Duration 6 weeks Assessment Summary Assessment pt reports a flare up last week after she was chasing after a kid but symptoms have resolved after. Her ankle ROM = WNL, and she can calixto SL heel raise in 45 ankle now and do bouncing pylometric heel lift at home as well. Will call pt to check her progress and expect to be DC in 2 weeks. Physical Therapy Plan Frequency and Duration Frequency of Treatment 1x/Week Duration of Treatment 6 weeks Plan of Care Start Date 06/24/21 Plan of Care End Date 08/08/21 Therapeutic Interventions Therapeutic Interventions Balance Training,Gait Training ,Home Exercise Program,Joint Mobilizations,Manual Therapy, Neuromuscular Re-education, Orthotic/Prosthetic Management ,Patient/Caregiver Education, Self-Care/Home Management,Soft Tissue Mobilization,Taping, Therapeutic Activities, Therapeutic Exercises Modalities Cold Pack/Ice Massage,Electric Stimulation,Hot Packs, Infrared Therapy,Ultrasound Next Visit Focus/Plan Next Note Type Treatment Note Next Visit Plan gait assessment check shoewear calf raise SL balance, step up.
--- NOTE | 2021-07-15 11:15 | PT.OTN ---
Current Diagnoses Strain of right Achilles tendon, initial encounter (07/15/21) Physical Therapy Treatment Note PT-OP-A Visit Information Start: 06/24/21 15:31 Freq: Status: Active Protocol: Document 07/15/21 10:32 HH (Rec: 07/15/21 11:14 [id number]) Out-Patient Physical Therapy Visit Information Visit Information Visit Type Treatment Note Visit Start Time 10:30 Visit Stop Time 11:15 Total Visit Minutes 45 Visit Number 3/45 Number of POLISHER NUMERAL Visits 0 PT-OP-B Current Condition Start: 06/24/21 15:31 Freq: Status: Active Protocol: Document 06/24/21 15:38 HH (Rec: 06/24/21 15:58 [email or web address]) Current Condition History of Current Condition Onset Date this summer Current Complaints R achilles pain, difficulty to walk History of Current Condition Cookie is a 61yo female here for her R achilles pain since this summer without known injury. She started having a bump at mid section of R achilles and progressively hurting more with walking or wearing shoes with hard heel support. Her pain is the worst in the morning when she takes the first step. She has been doing calf stretches and heel raises so her symptoms have been getting better. She would like to walk 2-3 miles x4 / week and able to play tag with her grand kids. Personal Factors Other Personal Factors That May Effect depression Therapy/Recovery PT-OP-C Subjective Start: 06/24/21 15:31 Freq: Status: Active Protocol: Document 07/15/21 10:32 HH (Rec: 07/15/21 11:14 [id number]) OP-PT Subjective Patient Comments Patient Comments I had a flare up recently after i ran after a kid at school. I was okay to walk after. I was doing pretty good before that. Patient Reported Progress Improving PT-OP-D Balance Start: 06/24/21 15:31 Freq: Status: Active Protocol: Document 06/24/21 15:38 HH (Rec: 06/24/21 15:58 [email or web address]) Balance Tests Single Limb Standing Single Limb- Right >30 Single Limb- Left >30 PT-OP-F Manual Assessment Start: 06/24/21 15:31 Freq: Status: Active Protocol: Document 06/24/21 15:38 HH (Rec: 06/24/21 15:58 [email or web address]) Manual Assessments Soft Tissue Assessment Soft Tissue Mobility Assessment tenderness at mid achilles Joint Mobility Assessment Joint Mobility Assessment ankle joint WFL bilaterally PT-OP-G Mobility & Gait Start: 06/24/21 15:31 Freq: Status: Active Protocol: Document 06/24/21 15:38 HH (Rec: 06/24/21 15:58 [email or web address]) OP Gait Assessment Comments Gait Comments moderately hard heel strike bilaterally. symmetrical gait pattern. PT-OP-H Neuro Start: 06/24/21 15:31 Freq: Status: Active Protocol: Document 06/24/21 15:38 HH (Rec: 06/24/21 15:58 [email or web address]) Sensation Evaluation Gross Sensation Gross Sensation WNL Deep Tendon Reflex & Clonus Assessment Deep Tendon Reflex Bilateral Achilles Deep Tendon Reflex 2+ Normal PT-OP-K Range of Motion Start: 06/24/21 15:31 Freq: Status: Active Protocol: Document 06/24/21 15:38 HH (Rec: 06/24/21 15:58 [email or web address]) Hip Goniometric Range of Motion Hip Left Active Straight Leg Raise 93 Right Active Straight Leg Raise 92 Ankle and Foot Goniometric Range of Motion Ankle and Foot Right Active Ankle/Foot ROM WFL Yes Testing Position Supine Dorsiflexion with Knee Flexed 18 Dorsiflexion with Knee Extended 8 Plantarflexion 58 Inversion 55 Eversion 25 Left Active Ankle/Foot ROM WFL Yes Testing Position Supine Dorsiflexion with Knee Flexed 22 Dorsiflexion with Knee Extended 18 Plantarflexion 43 Inversion 43 Eversion 28 Toe Range of Motion Toe Left Great Toe Toe ROM WFL Yes Right Great Toe Toe ROM WFL Yes PT-OP-M Strength Start: 06/24/21 15:31 Freq: Status: Active Protocol: Document 06/24/21 15:38 HH (Rec: 06/24/21 15:58 [email or web address]) Hip Strength Hip Manual Muscle Testing Right Flexion (L2) 4+ Good+ Extension (S1) 4+ Good+ Abduction 4+ Good+ Left Flexion (L2) 4+ Good+ Extension (S1) 4+ Good+ Abduction 4+ Good+ Ankle/Foot Strength Ankle and Foot Manual Muscle Testing Right Dorsiflexion (L4) 5 Normal Plantarflexion (S1) 4 Good Inversion 5 Normal Eversion (S1) 5 Normal Comments SL calf raise= 9 times Left Dorsiflexion (L4) 5 Normal Plantarflexion (S1) 5 Normal Inversion 5 Normal Eversion (S1) 5 Normal Comments SL calf raise= 14 times PT-OP-Q Treatments Start: 06/24/21 15:31 Freq: Status: Active Protocol: Document 07/15/21 10:32 (Rec: 07/15/21 11:14 [id number]) Cardio Equipment Bicycle (Upright) Duration (Minutes) 7 Resistance 5 Therapeutic Exercises Supine Exercises ankle DF Side right Equipment Used level 5 band Reps/Minutes 10x2 Standing Exercises bouncing pylometrics Standing Exercise Name hopping on toes, then more weight on R Side bilateral heel raises Standing Exercise Name SL heel raise, incline to reduce body weight Side bilateral Reps/Minutes 12 x 2 Comments for hEP Manual Therapy Treatment Soft Tissue Mobilization calf Body Location +achilles Mobilization Type Myofascial Release Intensity/Depth Moderate Comments slight tenderness noted only. PT-OP-T Assessment and Plan Start: 06/24/21 15:31 Freq: Status: Active Protocol: Document 07/15/21 10:32 (Rec: 07/15/21 11:14 [id number]) Physical Therapy Assessment Goals calf strength Impairment R = 9 times Yacht Builder Goal (LTG) 07/15 goal met pt is able to complete >15 times SL heel raise to improved push off and eccentric loading from running . LTG Duration 6 weeks FAAM Impairment pt scores 64 and9 on FAAM Shelter Goal (LTG) pt will score >70 on FAAM to show improved ankle strength and mobility LTG Duration 6 weeks LEFS Impairment pt scores 60 on LEFS Short Term Goal (STG) pt will show improved SL stability and strength to score >65 on LEFS STG Duration 3weeks Shelter Goal (LTG) pt will show improved SL stability and strength to score >70 on LEFS in order for her to play tag with her grandkids LTG Duration 6 weeks Assessment Summary Assessment pt reports a flare up last week after she was chasing after a kid but symptoms have resolved after. Her ankle ROM = WNL, and she can calixto SL heel raise in 45 ankle now and do bouncing pylometric heel lift at home as well. Will call pt to check her progress and expect to be DC in 2 weeks. Physical Therapy Plan Frequency and Duration Frequency of Treatment 1x/Week Duration of Treatment 6 weeks Plan of Care Start Date 06/24/21 Plan of Care End Date 08/08/21 Therapeutic Interventions Therapeutic Interventions Balance Training,Gait Training ,Home Exercise Program,Joint Mobilizations,Manual Therapy, Neuromuscular Re-education, Orthotic/Prosthetic Management ,Patient/Caregiver Education, Self-Care/Home Management,Soft Tissue Mobilization,Taping, Therapeutic Activities, Therapeutic Exercises Modalities Cold Pack/Ice Massage,Electric Stimulation,Hot Packs, Infrared Therapy,Ultrasound Next Visit Focus/Plan Next Note Type Treatment Note Next Visit Plan gait assessment check shoewear calf raise SL balance, step up.
--- NOTE | 2021-08-06 15:05 | PT.OPDS ---
Current Diagnoses Strain of right Achilles tendon, initial encounter (07/15/21) Visit Care Team Role Provider Type Rosa Holbrook MD Attending Provider Physician Primary Care Provider Referring Provider Specialty: Family Practice Address: [address] [place] [address], [place], [place], [facility] Email: [email or web address] Visit Number Visit Number Discharge Summary PT-OP-B Current Condition Start: 06/24/21 15:31 Freq: Status: Active Protocol: Document 06/24/21 15:38 HH (Rec: 06/24/21 15:58 HH [email or web address]) Current Condition History of Current Condition Onset Date this summer Current Complaints R achilles pain, difficulty to walk History of Current Condition Cookie is a 61yo female here for her R achilles pain since this summer without known injury. She started having a bump at mid section of R achilles and progressively hurting more with walking or wearing shoes with hard heel support. Her pain is the worst in the morning when she takes the first step. She has been doing calf stretches and heel raises so her symptoms have been getting better. She would like to walk 2-3 miles x4 / week and able to play tag with her grand kids. Personal Factors Other Personal Factors That May Effect depression Therapy/Recovery PT-OP-C Subjective Start: 06/24/21 15:31 Freq: Status: Active Protocol: Document 07/15/21 10:32 HH (Rec: 07/15/21 11:14 HH [id number]) OP-PT Subjective Patient Comments Patient Comments I had a flare up recently after i ran after a kid at school. I was okay to walk after. I was doing pretty good before that. Patient Reported Progress Improving PT-OP-D Balance Start: 06/24/21 15:31 Freq: Status: Active Protocol: Document 06/24/21 15:38 HH (Rec: 06/24/21 15:58 HH [email or web address]) Balance Tests Single Limb Standing Single Limb- Right >30 Single Limb- Left >30 PT-OP-F Manual Assessment Start: 06/24/21 15:31 Freq: Status: Active Protocol: Document 06/24/21 15:38 HH (Rec: 06/24/21 15:58 HH [email or web address]) Manual Assessments Soft Tissue Assessment Soft Tissue Mobility Assessment tenderness at mid achilles Joint Mobility Assessment Joint Mobility Assessment ankle joint WFL bilaterally PT-OP-G Mobility & Gait Start: 06/24/21 15:31 Freq: Status: Active Protocol: Document 06/24/21 15:38 HH (Rec: 06/24/21 15:58 [email or web address]) OP Gait Assessment Comments Gait Comments moderately hard heel strike bilaterally. symmetrical gait pattern. PT-OP-H Neuro Start: 06/24/21 15:31 Freq: Status: Active Protocol: Document 06/24/21 15:38 HH (Rec: 06/24/21 15:58 [email or web address]) Sensation Evaluation Gross Sensation Gross Sensation WNL Deep Tendon Reflex & Clonus Assessment Deep Tendon Reflex Bilateral Achilles Deep Tendon Reflex 2+ Normal PT-OP-K Range of Motion Start: 06/24/21 15:31 Freq: Status: Active Protocol: Document 06/24/21 15:38 HH (Rec: 06/24/21 15:58 [email or web address]) Hip Goniometric Range of Motion Hip Left Active Straight Leg Raise 93 Right Active Straight Leg Raise 92 Ankle and Foot Goniometric Range of Motion Ankle and Foot Right Active Ankle/Foot ROM WFL Yes Testing Position Supine Dorsiflexion with Knee Flexed 18 Dorsiflexion with Knee Extended 8 Plantarflexion 58 Inversion 55 Eversion 25 Left Active Ankle/Foot ROM WFL Yes Testing Position Supine Dorsiflexion with Knee Flexed 22 Dorsiflexion with Knee Extended 18 Plantarflexion 43 Inversion 43 Eversion 28 Toe Range of Motion Toe Left Great Toe Toe ROM WFL Yes Right Great Toe Toe ROM WFL Yes PT-OP-M Strength Start: 06/24/21 15:31 Freq: Status: Active Protocol: Document 06/24/21 15:38 HH (Rec: 06/24/21 15:58 [email or web address]) Hip Strength Hip Manual Muscle Testing Right Flexion (L2) 4+ Good+ Extension (S1) 4+ Good+ Abduction 4+ Good+ Left Flexion (L2) 4+ Good+ Extension (S1) 4+ Good+ Abduction 4+ Good+ Ankle/Foot Strength Ankle and Foot Manual Muscle Testing Right Dorsiflexion (L4) 5 Normal Plantarflexion (S1) 4 Good Inversion 5 Normal Eversion (S1) 5 Normal Comments SL calf raise= 9 times Left Dorsiflexion (L4) 5 Normal Plantarflexion (S1) 5 Normal Inversion 5 Normal Eversion (S1) 5 Normal Comments SL calf raise= 14 times PT-OP-T Assessment and Plan Start: 06/24/21 15:31 Freq: Status: Active Protocol: Document 08/06/21 15:04 (Rec: 08/06/21 15:05 [email or web address]) Physical Therapy Plan Discharge Physical Therapy Discharge Reasons Goals Met Discharge Comments Pt is doing well and able to manage her symptoms effectively. DC from PT today
== END 2021-10-19 09:33 ==
LOC: PHYS 10:30
PROVIDERS: PCP Family Medicine; Referring Provider Family Medicine; Visit Provider Family Medicine
DX: S86.011A Strain of right Achilles tendon, initial encounter (principal)
CPT/HCPCS: 97110; 97140; 97161

== ENCOUNTER → 2021-07-15 16:04 | Outpatient (CLI) | payer OTHER, SELFPAY ==
--- NOTE | 2021-07-15 16:05 | DI.MG.S_ITS ---
BILATERAL DIGITAL SCREENING MAMMOGRAM 3D/2D WITH CAD: 07/15/2021 CLINICAL: Routine screening. Comparison is made to exams dated: 07/11/2019 mammogram - [facility], 07/08/2015 mammogram, and 05/10/2012 mammogram - [facility]. There are scattered fibroglandular elements in both breasts. Current study was also evaluated with a Computer Aided Detection (CAD) system. No significant masses, calcifications, or other findings are seen in either breast. There has been no significant interval change. IMPRESSION: NEGATIVE There is no mammographic evidence of malignancy. A 1 year screening mammogram is recommended. This exam was interpreted at Station ID: [id number]. NOTE: For mammograms, a report in lay terms will be sent to the patient. Approximately 15% of breast malignancies will not be visualized mammographically. In the management of a palpable breast mass, a negative mammogram must not discourage biopsy of a clinically suspicious lesion. Electronically Signed By: Phoenix cunha/gina:07/15/2021 17:34:18 letter sent: Normal Exam ACR BI-RADS Category 1: Negative [id number]
== END ==
PROVIDERS: PCP Family Medicine; Referring Provider Family Medicine; Visit Provider Family Medicine
DX: Z12.31 Encounter for screening mammogram for malignant neoplasm of breast (principal)
CPT/HCPCS: 77063; 77067

== ENCOUNTER → 2022-07-18 07:26 | Outpatient (CLI) | payer OTHER, SELFPAY ==
--- NOTE | 2022-07-18 | DI.MG.S_ITS ---
BILATERAL DIGITAL SCREENING MAMMOGRAM 3D/2D WITH CAD: 07/18/2022 CLINICAL: Routine screening. Comparison is made to exams dated: 07/15/2021 mammogram, 07/11/2019 mammogram - [facility], and 07/08/2015 mammogram - [facility]. There are scattered areas of fibroglandular density in both breasts (category b / 25%-50% glandular tissue). Current study was also evaluated with a Computer Aided Detection (CAD) system. No significant masses, calcifications, or other findings are seen in either breast. There has been no significant interval change. IMPRESSION: NEGATIVE There is no mammographic evidence of malignancy. A 1 year screening mammogram is recommended. Based on the Tyrer Cuzick model (a risk assessment model) the patient's lifetime risk is 6.1% and her 10 year risk is 2.8%. According to the ACR, ACS, and NCCN guidelines, an annual breast MRI exam along with mammogram is recommended if the patient's lifetime risk is 20% or greater. This exam was interpreted at Station ID: [id number]. NOTE: For mammograms, a report in lay terms will be sent to the patient. Approximately 15% of breast malignancies will not be visualized mammographically. In the management of a palpable breast mass, a negative mammogram must not discourage biopsy of a clinically suspicious lesion. Electronically Signed By: Lopez Severino M.D., jr/gina:07/19/2022 12:35:14 letter sent: Normal Exam ACR BI-RADS Category 1: Negative 3341F
== END ==
PROVIDERS: PCP Family Medicine; Referring Provider Family Medicine; Visit Provider Family Medicine
DX: Z12.31 Encounter for screening mammogram for malignant neoplasm of breast (principal)
CPT/HCPCS: 77063; 77067

== ENCOUNTER → 2022-12-19 08:13 | Outpatient (CLI) | payer OTHER, SELFPAY ==
[2022-12-19 09:09] LABS: Add Manual Diff / Slide Review NO; Basophils Absolute Auto 100 /uL (0-100); Eosinophils Absolute Auto 200 /uL (0-450); Eosinophils Percent Auto 3.7 % (2-4); Hemoglobin 13.5 g/dL (12.0-16.0); Lymphocytes Absolute Auto 2000 /uL (1100-4500); Lymphocytes Percent Auto 35.6 % (25-40); Mean Corpuscular HGB Conc 33.7 % (30-36); Mean Corpuscular Hemoglobin 31.3 PG (26-34); Mean Corpuscular Volume 92.8 fL (80-100); Monocytes Absolute Auto 400 /uL (0-900); Monocytes Percent Auto 6.4 % (3-14); Neutrophils Absolute Auto 3000 /uL (1500-7000); Neutrophils Percent Auto 53.3 % (50-75); Platelet Count 299 X10^3/uL (150-400); Red Blood Cell Count 4.31 X10^6/uL (4.0-5.2); Red Cell Distribution Width 12.8 % (11.6-14.8); White Blood Cell Count 5.5 X10^3/uL (4.5-11.0)
[2022-12-19 09:46] LABS: Alanine Aminotransferase 44 IU/L (<35); Albumin Globulin Ratio 1.5 (1.0-2.8); Alkaline Phosphatase 68 U/L (38-126); Aspartate Aminotransferase 30 IU/L (14-36); BUN Creatinine Ratio 19.7 (6-22); Bilirubin Total 0.5 mg/dL (0.2-1.3); Blood Urea Nitrogen 12 mg/dL (7-17); Calcium 9.1 mg/dL (8.4-10.2); Carbon Dioxide 30 mmol/L (22-32); Chloride 104 mmol/L (98-107); Cholesterol 215 mg/dL (140-199); Estimated Glomerular Filt Rate > 60 mL/min (>60); Globulin 2.6 g/dL (1.7-4.1); Glucose 96 mg/dL (80-110); HDL Cholesterol 76 mg/dL (40-60); HEMOLYSIS < 15 (0-50); LDL Cholesterol Calculated 102 mg/dL (<100); Potassium 4.8 mmol/L (3.4-5.1); Sodium 137 mmol/L (137-145); Total Protein 6.6 g/dL (6.3-8.2); Triglycerides 183 mg/dL (35-150)
== END ==
PROVIDERS: PCP Family Medicine; Referring Provider Family Medicine; Visit Provider Family Medicine
DX: E87.1 Hypo-osmolality and hyponatremia (principal); Z13.220 Encounter for screening for lipoid disorders; D72.10 Eosinophilia, unspecified
CPT/HCPCS: 36415; 80053; 80061; 85025

== ENCOUNTER → 2023-09-15 08:05 | Outpatient (CLI) | payer MEDICARE, SELFPAY ==
--- NOTE | 2023-09-15 08:09 | DI.MG.S_ITS ---
BILATERAL DIGITAL SCREENING MAMMOGRAM 3D/2D WITH CAD: 09/15/2023 CLINICAL: Routine screening. Comparison is made to exams dated: 07/18/2022 mammogram, 07/15/2021 mammogram, 07/22/2019 mammogram, and 07/11/2019 mammogram - [facility]. There are scattered areas of fibroglandular density in both breasts (category b / 25%-50% glandular tissue). Current study was also evaluated with a Computer Aided Detection (CAD) system. No significant masses, calcifications, or other findings are seen in either breast. There has been no significant interval change. IMPRESSION: NEGATIVE There is no mammographic evidence of malignancy. A 1 year screening mammogram is recommended. Based on the Tyrer Cuzick model (a risk assessment model) the patient's lifetime risk is 5.9% and her 10 year risk is 2.8%. According to the ACR, ACS, and NCCN guidelines, an annual breast MRI exam along with mammogram is recommended if the patient's lifetime risk is 20% or greater. This exam was interpreted at Station ID: [id number]. NOTE: For mammograms, a report in lay terms will be sent to the patient. Approximately 15% of breast malignancies will not be visualized mammographically. In the management of a palpable breast mass, a negative mammogram must not discourage biopsy of a clinically suspicious lesion. Electronically Signed By: Alvin medina/gina:09/15/2023 16:03:09 letter sent: Normal Exam ACR BI-RADS Category 1: Negative 3341F
== END ==
LOC: MAMMO 08:07
PROVIDERS: PCP Family Medicine; Referring Provider Family Medicine; Visit Provider Family Medicine
DX: Z12.31 Encounter for screening mammogram for malignant neoplasm of breast (principal)
CPT/HCPCS: 77063; 77067

== ENCOUNTER 2024-02-22 11:25 | Emergency (ER) | payer MEDICARE, SELFPAY ==
[2024-02-22] VITALS (11 sets, daily range): BP systolic 123–153; BP diastolic 63–78; PULSE 81–96; RESP 18; TEMP 37.4; O2SAT 93–99; BMI 30.6
--- NOTE | 2024-02-22 12:07 | ED_ITS ---
HPI - Abdominal Pain General Chief Complaint: Abdominal Pain Stated Complaint: Abd Pain, Fever Time Seen by Provider: 02/22/24 12:07 Source: patient Mode of arrival: Ambulatory History of Present Illness HPI narrative: 63-year-old female complains of left-sided abdominal pain last week lasting about 2 days, went away without specific treatment, now has left sided abdominal pain again for the last 2 days, last bowel movement without red or black color, now hard stools. No history of kidney stones known. No fevers or chills. No known history of colitis but she believes she might have had diverticulosis diagnosed on previous colonoscopy, no recent colonoscopy. No injury or trauma or new activities. She denies cough shortness of breath. She denies dark urine, no painful urination or frequency with urination. She denies nausea or vomiting. No skin rashes or vesicles. Related Data Previous Rx's Medication Instructions Recorded ciprofloxacin HCl 500 mg tablet 500 mg PO BID 10 days #20 tabs 02/22/24 metronidazole 500 mg tablet 500 mg PO TID 10 days #30 tabs 02/22/24 Allergies Allergy/AdvReac Type Severity Reaction Status Date / Time No Known Drug Allergies Allergy Verified 02/22/24 15:29 Review of Systems Review of Systems Narrative: As per HPI Patient History Medical History (Updated 02/22/24 @ 15:03 by Venkat Branham MD) Fibroids History of urinary incontinence Plantar warts (~1999) Acne (~1970) Hay fever (~2004) Depression (~2006) Benign familial tremor Shoulder pain (~2006) Cervical spine disease (~2009) Ankle pain (~2016) Mumps Measles Chicken pox (~1962) Anemia Tinnitus (~2006) Hearing loss (~2006) Abnormal Pap smear of cervix (~1989) Colon polyps (~2012) History of basal cell carcinoma (BCC) of skin (1989) Osteoarthritis (~2009) Surgical History Anesthesia History of varicose vein stripping (~2008) History of eye surgery (~2006) BCC (basal cell carcinoma of skin) (1989) History of shoulder surgery (~2007) Family History Father Kidney stones Intestinal bleeding Cancer Stroke Mother Glaucoma Heart disease History of angioplasty Hypertension Mental health problem Sister Hypothyroidism Brother Osteoarthritis Brother HIV antibody positive Social History household members: children lives independently: Yes caregiver/support person: No housing: house pets and animals: Yes (Cat) education level: college occupational status: employed current occupational exposures/hazards: No seatbelt use: always Smoking Status: Never smoker second hand exposure: No alcohol intake: current substance use type: does not use Smoking Status: Never smoker alcohol intake frequency: a few times a week Substance Use Type: does not use Exam Narrative Exam Narrative: GENERAL: Well-developed patient, in mild distress. HEAD: Atraumatic. Normocephalic. EYES: Pupils equal round and reactive. Extraocular motions intact. No scleral icterus. No injection or drainage. ENT: Nose without bleeding, purulent drainage. Throat without erythema, tonsillar hypertrophy or exudate. Airway patent. NECK: Trachea midline. Non tender CARDIOVASCULAR: Regular rate and rhythm without murmurs, gallops, or rubs. RESPIRATORY: Clear to auscultation. Breath sounds equal bilaterally. No wheezes, rales, or rhonchi. GASTROINTESTINAL: Abdomen soft, non-tender, nondistended. EXTREMITIES: No edema or joint tenderness. BACK: Nontender without deformity or crepitance. No flank tenderness. NEURO: AOx3. SKIN: No rash or erythema of visible areas Initial Vital Signs Initial Vital Signs: Vital Signs Temperature 99.3 F 02/22/24 11:35 Pulse Rate 91 H 02/22/24 11:35 Respiratory Rate 18 02/22/24 11:35 Blood Pressure 137/78 02/22/24 11:35 Pulse Oximetry 96 02/22/24 11:35 Oxygen Delivery Method Room Air 02/22/24 11:35 Course Orders Ordered: ED Orders 02/22/24 12:00 Complete Blood Count AUTO DIFF Stat Comprehensive Metabolic Panel Stat Lactate (Lactic Acid) Stat Lipase Stat 02/22/24 12:04 EKG-12 Lead Stat 02/22/24 12:53 CT abdomen pelvis w con Stat 02/22/24 15:25 Blood Culture Stat Discontinued Medications Ciprofloxacin (Cipro) 400 mg in 200 mls @ 200 mls/hr IV NOW ONE Stop: 02/22/24 15:57 Last Infusion: 02/22/24 16:49 Dose: Infused Documented By: Admin: 02/22/24 15:35 Dose: 200 mls/hr Documented By: TOM Metronidazole (Metronidazole 500 Mg Tablet) 500 mg PO NOW ONE Stop: 02/22/24 15:00 Last Admin: 02/22/24 15:34 Dose: 500 mg Documented By: TOM Ondansetron HCl (Ondansetron 4 Mg/2 Ml Inj) 4 mg IV NOW PRN PRN Reason: Nausea And Vomiting Vital Signs Vital signs: Vital Signs - 8 hr 02/22/24 13:00 02/22/24 13:00 02/22/24 15:09 Pulse Rate 81 96 H Blood Pressure 123/69 Pulse Oximetry 99 93 Oxygen Delivery Method Room Air 02/22/24 15:30 02/22/24 16:00 02/22/24 16:30 Pulse Rate 93 H 90 90 Blood Pressure Pulse Oximetry 96 97 96 Oxygen Delivery Method Room Air Room Air 02/22/24 16:51 02/22/24 16:51 02/22/24 17:00 Pulse Rate 94 H 88 Blood Pressure 153/70 H Pulse Oximetry 98 97 Oxygen Delivery Method Room Air 02/22/24 17:00 Pulse Rate Blood Pressure 147/76 H Pulse Oximetry Oxygen Delivery Method MDM - Abdominal Pain Lab Data Attestation: I reviewed the patient's lab results. 02/22/24 12:00 02/22/24 12:00 Labs: Lab Results 02/22/24 02/22/24 Range/Units 11:35 12:00 WBC 11.3 H (4.5-11.0) X10^3/uL RBC 3.98 L (4.0-5.2) X10^6/uL Hgb 12.7 (12.0-16.0) g/dL Hct 37.1 (36-46) % MCV 93.2 (80-100) fL MCH 31.9 (26-34) PG MCHC 34.2 (30-36) % RDW 12.3 (11.6-14.8) % Plt Count 273 (150-400) X10^3/uL Neut % (Auto) 77.7 H (50-75) % Lymph % (Auto) 16.1 L (25-40) % [place] % (Auto) 5.3 (3-14) % Eos % (Auto) 0.5 L (2-4) % Baso % (Auto) 0.4 (0-2) % Neut # (Auto) 8800 H (0671-9242) /uL Lymph # (Auto) 1800 (6002-6648) /uL [place] # (Auto) 600 (0-900) /uL Eos # (Auto) 100 (0-450) /uL Baso # (Auto) 0 (0-100) /uL Sodium 136 L (137-145) mmol/L Potassium 3.8 (3.4-5.1) mmol/L Chloride 104 (98-107) mmol/L Carbon Dioxide 28 (22-32) mmol/L BUN 8 (7-17) mg/dL Creatinine 0.66 (0.52-1.04) mg/dL Estimated GFR > 60 (>60) mL/min BUN/Creatinine Ratio 12.1 (6-22) Glucose 116 H (80-110) mg/dL Lactate 0.8 (0.7-2.1) mmol/L Calcium 8.9 (8.4-10.2) mg/dL Total Bilirubin 1.4 H (0.2-1.3) mg/dL AST 61 H (14-36) IU/L ALT 77 H (<35) IU/L Alkaline Phosphatase 107 (38-126) U/L Total Protein 6.7 (6.3-8.2) g/dL Albumin 4.1 (3.5-5.0) g/dL Globulin 2.6 (1.7-4.1) g/dL Albumin/Globulin Ratio 1.6 (1.0-2.8) Lipase 51 (23-300) U/L Urine RBC None seen (0-5/HPF) Urine WBC 0-1/hpf (0-5/HPF) Ur Squamous Epith Cells 1-5 /hpf (0-5/HPF) Urine Bacteria None seen (None) Ur Culture Indicated? Cult not indicated Vol Urine Centrifuged 10ml (spun) Point of care testing: Urine Dip Bedside Urine Glucose Negative Bedside Urine Bilirubin - Negative Bedside Urine Ketone - Negative Urine Specific [place] 1.030 Bedside Urine Occult Blood - Negative Bedside Urine pH 5.5 Bedside Urine Protein +/- 15 Bedside Urine Urobilinogen - Negative Bedside Urine Nitrite - Negative Bedside Urine Leukocytes - Negative Esterase Imaging Data CT scan - abdomen/pelvis: Radiologist's Impression: Close Abdomen/Pelvis CT (Signed) Terry Chaudhry - 02/22/[address] [address] [address] Scan Report Signed Patient: Cookie Goff MR#: [id number] : 1960 Acct:[id number] Age/Sex: 63 / F Date of Service: 02/22/24 Loc: ED Accession Number: [id number] Procedure: CT abdomen pelvis w con Ordering Provider: Venkat Branham MD PROCEDURE: CT ABDOMEN PELVIS W CON INDICATIONS: left sided abdominal pain TECHNIQUE: After the administration of intravenous contrast, axial sections acquired from the lung bases to the pubic symphysis. Coronal and sagittal reformats were performed. For radiation dose reduction, the following was used: automated exposure control, adjustment of mA and/or kV according to patient size. COMPARISON: None. FINDINGS: Image quality: Diagnostic. Lower Chest: No significant findings. ABDOMEN: Liver: No solid mass. Scattered subcentimeter hypoattenuating lesions, too small to characterize by CT but probably small cysts. Gallbladder: Gallbladder sludge versus small stones. No wall thickening or pericholecystic edema to suggest acute cholecystitis. Biliary ducts: No biliary dilation. Pancreas: No ductal dilation. Spleen: Size is within normal limits. Adrenal Glands: No adrenal nodules. Kidneys and Ureters: No hydronephrosis. No solid mass. No complex renal cystic lesion which requires follow up. Stomach and Bowel: Inflamed sigmoid diverticulum, dissociated wall thickening and pericolonic fat stranding. Normal appendix. Peritoneum: Trace free fluid in the pelvis. No rim enhancing collection. No free air. Ventral Wall: No significant ventral hernia. Abdominal Nodes: No retroperitoneal or mesenteric adenopathy by size criteria. Vessels: Aorta and inferior vena cava are normal in size. PELVIS: Pelvic Organs: Unremarkable. Bladder: No bladder wall thickening, accounting for underdistention. Pelvic Nodes: No enlarged lymph nodes. Miscellaneous: No inguinal hernias are seen. Bones: No aggressive osseous abnormality. IMPRESSION: Uncomplicated acute diverticulitis of the sigmoid colon. No evidence perforation or abscess. Dictated by: Terry Chaudhry M.D. on 02/22/2024 at 13:40 Approved by: Terry Chaudhry M.D. on 02/22/2024 at 13:42 ECG Data Attestation: I personally reviewed and interpreted this ECG as follows: Interpretation: Normal sinus rhythm with rate of 89, no obvious ST segment elevation or depression changes. SD 146, QRS 80, QTC 430. MDM Narrative Medical decision making narrative: 63-year-old female with intermittent left sided abdominal pain, 2 days' duration last week got better without specific treatment, now with 2 days of symptoms again, no nausea or vomiting, afebrile, sirs screen negative. Some tenderness left lower quadrant without guarding or rebound. DX consider colitis, diverticulitis, ureteral stone, UTI, other. Anticipate CT imaging, check GFR. She declines pain medications when offered. GFR favorable, CT abdomen and pelvis with IV contrast ordered CT abdomen and pelvis shows uncomplicated sigmoid diverticulitis. IV ciprofloxacin, PO Flagyl. We will discharge on oral ciprofloxacin and Flagyl. Critical Care Time Critical Care Time Critical Care Time: Yes Total Critical Care Time: 31 Attestation: The high probability of a clinically significant, sudden or life threatening deterioration of the [abdominal pelvic, gastrointestinal] system(s) required my full and direct attention, intervention and personal management. The aggregate critical care time was [31] minutes. This time is in addition to time spent performing reported procedures but includes the following: [x] Data Review and interpretation [x] Patient assessment and monitoring of vital signs [x] Documentation [x] Medication orders and management Discharge Plan Departure Patient Disposition: Home Clinical Impression: Diverticulitis of sigmoid colon Instructions: DI for Diverticulitis Activity Restrictions/Additional Instructions: Left-sided abdominal pain resolved few days ago, recurrence for the last couple of days, with some tenderness on exam today, no fever, normal vital signs, CT scan showed presence of diverticulitis inflammatory change in the sigmoid left- sided colon, without any evidence of perforation or abscess at this time. No bleeding symptoms. Uncomplicated diverticulitis at this time. First dose IV antibiotics given in the emergency department, further antibiotics for 10 day course sent to your pharmacy. Consider recheck of your symptoms on Monday with your regular doctor. Return to this/nearest emergency department for any change worsening symptoms or any concerns prior Avoid use of alcohol while taking Flagyl, as this can cause associated nausea and vomiting. That side effects interaction should go away once the Flagyl course is completed. Prescriptions: New ciprofloxacin HCl 500 mg tablet 500 mg PO BID 10 Days Qty: 20 0RF metronidazole 500 mg tablet 500 mg PO TID 10 Days Qty: 30 0RF Referrals: Rosa Holbrook MD [Primary Care Provider] - Stand Alone Forms: Patient Portal/API
[2024-02-22 12:11] LABS: Add Manual Diff / Slide Review NO; Basophils Absolute Auto 0 /uL (0-100); Basophils Percent Auto 0.4 % (0-2); Eosinophils Absolute Auto 100 /uL (0-450); Eosinophils Percent Auto 0.5 % (2-4); Hematocrit 37.1 % (36-46); Hemoglobin 12.7 g/dL (12.0-16.0); Lymphocytes Absolute Auto 1800 /uL (1100-4500); Lymphocytes Percent Auto 16.1 % (25-40); Mean Corpuscular HGB Conc 34.2 % (30-36); Mean Corpuscular Hemoglobin 31.9 PG (26-34); Mean Corpuscular Volume 93.2 fL (80-100); Monocytes Absolute Auto 600 /uL (0-900); Monocytes Percent Auto 5.3 % (3-14); Neutrophils Absolute Auto 8800 /uL (1500-7000); Neutrophils Percent Auto 77.7 % (50-75); Platelet Count 273 X10^3/uL (150-400); Red Blood Cell Count 3.98 X10^6/uL (4.0-5.2); Red Cell Distribution Width 12.3 % (11.6-14.8); White Blood Cell Count 11.3 X10^3/uL (4.5-11.0)
[2024-02-22 12:19] LABS: Bacteria Urine None Seen; Culture Indicated Urine Cult Not Indicated; RBC Urine None Seen (0-5/HPF); Squamous Epithelial Cell Urine 1-5 /HPF (0-5/HPF); Urine Volume 10mL (spun); WBC Urine 0-1/HPF (0-5/HPF)
[2024-02-22 12:22] LABS: Alanine Aminotransferase 77 IU/L (<35); Albumin 4.1 g/dL (3.5-5.0); Albumin Globulin Ratio 1.6 (1.0-2.8); Alkaline Phosphatase 107 U/L (38-126); Aspartate Aminotransferase 61 IU/L (14-36); BUN Creatinine Ratio 12.1 (6-22); Bilirubin Total 1.4 mg/dL (0.2-1.3); Blood Urea Nitrogen 8 mg/dL (7-17); Calcium 8.9 mg/dL (8.4-10.2); Carbon Dioxide 28 mmol/L (22-32); Chloride 104 mmol/L (98-107); Estimated Glomerular Filt Rate > 60 mL/min (>60); Globulin 2.6 g/dL (1.7-4.1); Glucose 116 mg/dL (80-110); HEMOLYSIS < 15 (0-50); Lipase 51 U/L (23-300); Potassium 3.8 mmol/L (3.4-5.1); Sodium 136 mmol/L (137-145); Total Protein 6.7 g/dL (6.3-8.2)
[2024-02-22 12:27] LABS: Lactate (Lactic Acid) 0.8 mmol/L (0.7-2.1)
--- NOTE | 2024-02-22 12:53 | DI.CT.S_ITS ---
PROCEDURE: CT ABDOMEN PELVIS W CON INDICATIONS: left sided abdominal pain TECHNIQUE: After the administration of intravenous contrast, axial sections acquired from the lung bases to the pubic symphysis. Coronal and sagittal reformats were performed. For radiation dose reduction, the following was used: automated exposure control, adjustment of mA and/or kV according to patient size. COMPARISON: None. FINDINGS: Image quality: Diagnostic. Lower Chest: No significant findings. ABDOMEN: Liver: No solid mass. Scattered subcentimeter hypoattenuating lesions, too small to characterize by CT but probably small cysts. Gallbladder: Gallbladder sludge versus small stones. No wall thickening or pericholecystic edema to suggest acute cholecystitis. Biliary ducts: No biliary dilation. Pancreas: No ductal dilation. Spleen: Size is within normal limits. Adrenal Glands: No adrenal nodules. Kidneys and Ureters: No hydronephrosis. No solid mass. No complex renal cystic lesion which requires follow up. Stomach and Bowel: Inflamed sigmoid diverticulum, dissociated wall thickening and pericolonic fat stranding. Normal appendix. Peritoneum: Trace free fluid in the pelvis. No rim enhancing collection. No free air. Ventral Wall: No significant ventral hernia. Abdominal Nodes: No retroperitoneal or mesenteric adenopathy by size criteria. Vessels: Aorta and inferior vena cava are normal in size. PELVIS: Pelvic Organs: Unremarkable. Bladder: No bladder wall thickening, accounting for underdistention. Pelvic Nodes: No enlarged lymph nodes. Miscellaneous: No inguinal hernias are seen. Bones: No aggressive osseous abnormality. IMPRESSION: Uncomplicated acute diverticulitis of the sigmoid colon. No evidence perforation or abscess. Dictated by: Terry Chaudhry M.D. on 02/22/2024 at 13:40 Approved by: Terry Chaudhry M.D. on 02/22/2024 at 13:42
[2024-02-22] MEDS: metroNIDAZOLE 500 MG TABLET PO (15:34)
[2024-02-22] MEDS: CIPROFLOXACIN 400 MG/200 ML PIGGYBACK 200 MG IV (15:35)
== END 2024-02-22 17:53 | disposition home or self-care (01) ==
PROVIDERS: Emergency Provider Emergency Medicine; PCP Family Medicine
DX: K57.32 Diverticulitis of large intestine without perforation or abscess without bleeding (principal)
CPT/HCPCS: 36415; 74177; 80053; 81003; 81015; 83605; 83690; 85025; 87040; 93005; 96365; 99284; 99291; J0744; Q9967

== ENCOUNTER → 2024-05-28 07:07 | Outpatient (CLI) | payer MEDICARE, SELFPAY ==
[2024-05-28 08:47] LABS: Alanine Aminotransferase 59 IU/L (<35); Albumin 3.9 g/dL (3.5-5.0); Albumin Globulin Ratio 1.6 (1.0-2.8); Alkaline Phosphatase 71 U/L (38-126); Aspartate Aminotransferase 42 IU/L (14-36); BUN Creatinine Ratio 26.6 (6-22); Bilirubin Total 0.5 mg/dL (0.2-1.3); Blood Urea Nitrogen 17 mg/dL (7-17); Calcium 9.4 mg/dL (8.4-10.2); Carbon Dioxide 29 mmol/L (22-32); Chloride 105 mmol/L (98-107); Estimated Glomerular Filt Rate > 60 mL/min (>60); Globulin 2.5 g/dL (1.7-4.1); Glucose 96 mg/dL (80-110); HEMOLYSIS < 15 (0-50); Potassium 4.5 mmol/L (3.4-5.1); Sodium 138 mmol/L (137-145); Total Protein 6.4 g/dL (6.3-8.2)
[2024-05-28 08:58] LABS: Vitamin D 25 Hydroxy (D3) 39.9 ng/mL (30.0-100.0)
[2024-05-28 09:17] LABS: Thyroid Stimulating Hormone 2.98 uIU/mL (0.47-4.68)
[2024-05-28 09:36] LABS: Vitamin B12 336 pg/mL (239-931)
== END ==
PROVIDERS: PCP Family Medicine; Referring Provider Family Medicine; Visit Provider Family Medicine
DX: R53.83 Other fatigue (principal); E55.9 Vitamin D deficiency, unspecified; R74.8 Abnormal levels of other serum enzymes
CPT/HCPCS: 36415; 80053; 82306; 82607; 84443

== ENCOUNTER → 2024-09-02 07:30 | Outpatient (CLI) | payer MEDICARE, SELFPAY ==
[2024-09-02 08:23] LABS: Alanine Aminotransferase 47 IU/L (<35); Albumin 4.3 g/dL (3.5-5.0); Albumin Globulin Ratio 1.8 (1.0-2.8); Alkaline Phosphatase 72 U/L (38-126); Aspartate Aminotransferase 37 IU/L (14-36); BUN Creatinine Ratio 19.3 (6-22); Bilirubin Total 0.5 mg/dL (0.2-1.3); Blood Urea Nitrogen 16 mg/dL (7-17); Calcium 9.6 mg/dL (8.4-10.2); Carbon Dioxide 32 mmol/L (22-32); Chloride 102 mmol/L (98-107); Estimated Glomerular Filt Rate > 60 mL/min (>60); Globulin 2.4 g/dL (1.7-4.1); Glucose 98 mg/dL (80-110); HEMOLYSIS < 15 (0-50); Potassium 4.3 mmol/L (3.4-5.1); Sodium 139 mmol/L (137-145); Total Protein 6.7 g/dL (6.3-8.2)
== END ==
PROVIDERS: PCP Family Medicine; Referring Provider Family Medicine; Visit Provider Family Medicine
DX: R74.8 Abnormal levels of other serum enzymes (principal)
CPT/HCPCS: 36415; 80053

== ENCOUNTER 2024-09-05 13:51 | Day surgery (SDC) | payer MEDICARE, SELFPAY ==
--- NOTE | 2024-09-05 | PATH_ITS ---
[facility] Accession Number: [id number] No. of containers..01 Tissue . 01 Material submitted: . rectum - RECTAL . 01 Diagnosis: A. RECTUM: Hyperplastic polyp. [facility] 09/09/2024 1542 Local . 01 Electronically signed: . Rudy Sandy MD, Pathologist NPI- [id number] . 01 Gross description: . RECTAL: Received in formalin is 1 fragment(s) of bravo, soft tissue measuring 0.6 x 0.5 x 0.4 cm submitted entirely in 1 cassette(s) /JOHN 09/06/2024 2333 Local . 01 Pathologist provided ICD-10: Z12.11 . 01 CPT . 461988 Specimen Comment: A courtesy copy of this report has been sent to [phone] Performed at: [address] [id number] MD Yash Sahni MD Phone: [phone]
[2024-09-05 14:07] VITALS: BP 142/77; PULSE 91; RESP 14; TEMP 36.7; O2SAT 99
--- NOTE | 2024-09-05 14:48 | P.HP_ITS ---
History of Present Illness History of Present Illness Date Patient Seen: 09/05/24 Time Patient Seen: 14:49 Chief complaint: [facility] [place] Narrative: Tari is a 64-year-old woman who is here for colonoscopy. Her last colonoscopy was in 2019. She did not have polyps at that time but she has had before that. [facility] Medical History (Updated 09/05/24 @ 14:50 by Alejandro Self MD) Fibroids History of urinary incontinence Plantar warts (~1999) Acne (~1970) Hay fever (~2004) Depression (~2006) Benign familial tremor Shoulder pain (~2006) Cervical spine disease (~2009) Ankle pain (~2016) Mumps Measles Chicken pox (~1962) Anemia Tinnitus (~2006) Hearing loss (~2006) Abnormal Pap smear of cervix (~1989) Colon polyps (~2012) History of basal cell carcinoma (BCC) of skin (1989) Osteoarthritis (~2009) Surgical History Anesthesia History of varicose vein stripping (~2008) History of eye surgery (~2006) BCC (basal cell carcinoma of skin) (1989) History of shoulder surgery (~2007) Family History Father Kidney stones Intestinal bleeding Cancer Stroke Mother Glaucoma Heart disease History of angioplasty Hypertension Mental health problem Sister Hypothyroidism Brother Osteoarthritis Brother HIV antibody positive Social History household members: children lives independently: Yes caregiver/support person: No housing: house pets and animals: Yes (Cat) education level: college occupational status: employed current occupational exposures/hazards: No seatbelt use: always Smoking Status: Never smoker second hand exposure: No alcohol intake: current substance use type: does not use Meds Home Medications and Allergies Home Medications Medication Instructions Recorded Confirmed Type estradiol 10 mcg vaginal tablet 10 mcg vaginal 2XW #30 tabs 05/21/24 09/05/24 Rx (Vagifem) sodium,potassium,mag sulfates 17.5 See Rx Instructions PO .COMPLEX 08/01/24 Rx gram-3.13 gram-1.6 gram oral soln #354 mL (Suprep Bowel Prep Kit) Allergies Allergy/AdvReac Type Severity Reaction Status Date / Time No Known Drug Allergies Allergy Verified 09/05/24 14:01 Exam Vital Signs (past 8 hours): - 09/05/24 14:07 Temperature 98.1 F Pulse Rate 91 H Respiratory Rate 14 Blood Pressure 142/77 H Pulse Oximetry 99 Oxygen Delivery Method Room Air Oxygen Delivery Method Room Air Const General: No acute distress Resp Effort & Inspection: normal respiratory effort Assessment & Plan Assessment and plan (1) Colon cancer screening: Status: Acute Plan Colonoscopy Time-Based Coding :: [TOTAL MINUTES] spent with patient and on the chart (including review of chart, obtaining history, exam, reviewing outside data, placing orders, documenting exam and treatment plan, and counseling patient) on [DATE].
[2024-09-05 15:20] VITALS: BP 130/70; PULSE 80; RESP 16; TEMP 36.2; O2SAT 98
--- NOTE | 2024-09-05 15:20 | PM.OP.COLON ---
Operative Date/Time/Diagnoses Date of procedure: 09/05/24 Time of procedure: 15:20 Pre-op diagnosis: Colon cancer screening Post-op diagnosis: same Procedure & Clinicians Study performed: Colonoscopy Same procedure as scheduled: Yes Surgeon: Alejandro Self Procedure Notes Procedure in detail: Surgeon: Alejandro Self MD Anesthesia: Sylwia Leonard CRNA Procedure: The patient was brought to the endoscopy suite, placed in left lateral decubitus position. The patient was connected to monitoring devices. A time-out was performed. Sedation was administered. Once the patient was adequately sedated, a digital rectal exam was performed and was normal. The scope was then inserted and advanced to the cecum where the appendiceal orifice was identified and photographed. The scope was then slowly withdrawn over greater than 6 minutes. The mucosa was thoroughly inspected. There was a single 5 mm rectal polyp removed with a cold snare. The scope was retroflexed in the rectum. No other abnormalities were identified. The scope was straightened and removed. The patient was awakened and brought to recovery. Scope withdrawal time: 8 minutes Sedation time: 13 minutes EBL: 2 mL Findings: 5 mm rectal polyp Post-procedure Disposition: PACU
[2024-09-05 15:25] VITALS: BP 123/71; PULSE 78; RESP 16; TEMP 36.2; O2SAT 98
[2024-09-05 15:30] VITALS: BP 112/74; PULSE 78; RESP 16; O2SAT 98
== END 2024-09-05 15:50 | disposition home or self-care (01) ==
PROVIDERS: PCP Family Medicine; Referring Provider Surgery; Visit Provider Surgery
PROC: 0DJD8ZZ Inspection of Lower Intestinal Tract, Via Natural or Artificial Opening Endoscopic (ICD-10-PCS; CPT 45378; principal; 2024-09-05 15:00)
DX: Z12.11 Encounter for screening for malignant neoplasm of colon (principal); K62.1 Rectal polyp
CPT/HCPCS: 45385; J2704

== ENCOUNTER → 2024-09-16 08:11 | Outpatient (CLI) | payer MEDICARE, SELFPAY ==
--- NOTE | 2024-09-16 08:12 | DI.MG.S_ITS ---
BILATERAL DIGITAL SCREENING MAMMOGRAM 3D/2D WITH CAD: 09/16/2024 CLINICAL: Routine screening. Comparison is made to exams dated: 09/15/2023 mammogram, 07/18/2022 mammogram, and 07/15/2021 mammogram - [facility]. There are scattered areas of fibroglandular density (category b / 25%-50% glandular tissue). Current study was also evaluated with a Computer Aided Detection (CAD) system. There are benign vascular calcifications in the right breast. No significant masses, calcifications, or other findings are seen in either breast. There has been no significant interval change. IMPRESSION: BENIGN There is no mammographic evidence of malignancy. A 1 year screening mammogram is recommended. Based on the Tyrer Cuzick model (a risk assessment model) the patient's lifetime risk is 5.6% and her 10 year risk is 2.8%. According to the ACR, ACS, and NCCN guidelines, an annual breast MRI exam along with mammogram is recommended if the patient's lifetime risk is 20% or greater. This exam was interpreted at Station ID: [id number]. NOTE: For mammograms, a report in lay terms will be sent to the patient. Approximately 15% of breast malignancies will not be visualized mammographically. In the management of a palpable breast mass, a negative mammogram must not discourage biopsy of a clinically suspicious lesion. Electronically Signed By: Jade alvarez/gina:09/16/2024 09:58:51 letter sent: Normal Exam ACR BI-RADS Category 2: Benign
== END ==
PROVIDERS: PCP Family Medicine; Referring Provider Family Medicine; Visit Provider Family Medicine
DX: Z12.31 Encounter for screening mammogram for malignant neoplasm of breast (principal)
CPT/HCPCS: 77063; 77067

== ENCOUNTER → 2024-11-22 10:08 | Outpatient (CLI) | payer MEDICARE, SELFPAY ==
--- NOTE | 2024-11-22 10:09 | DI.RAD.S_ITS ---
PROCEDURE: XR DEXA AXIAL SKELETON INDICATIONS: screening COMPARISON: None. FINDINGS: Lumbar Spine: Bone mineral density 0.805 g/cm2, T score -2.2. Left Femoral Neck: Bone mineral density 0.712 g/cm2, T score -1.2 Left Hip: Bone mineral density 0.873 g/cm2, T score -0.6. Fracture Risk Calculation (when applicable): 10-year fracture risk of a major osteoporotic fracture 8.4 percent and of a hip fracture 0.8 percent. (T score greater or equal to -1.0 to: NORMAL) (T score from -1.1 to -2.4: OSTEOPENIA) (T score less than or equal to -2.5: OSTEOPOROSIS) IMPRESSION: Osteopenia---recommend repeat DEXA in 2-3 years for reassessment. Follow-up guidelines as follows: Osteoporosis: Consider a repeat DEXA and Vertebral Fracture Assessment (VFA) exam in 2 years or sooner if medically necessary, to reassess this patient's status. Osteopenia: Consider a repeat DEXA in 2-3 years to reassess this patient's status, or if there is a new clinical indication. Normal: Consider a repeat DEXA in 5 years or sooner, or if there is a new clinical indication. All treatment decisions require clinical judgment and consideration of individual patient factors, including patient preferences, comorbidities, previous drug use, risk factors not captured in the FRAX model (e.g., frailty, falls, vitamin D deficiency, increased bone turnover, interval significant decline in bone density ) and possible under- or over-estimation of fracture risk by FRAX. In addition, the NOF Guide recommends that FDA-approved medical therapies be considered in postmenopausal women and men age >= 50 years with a: * Hip or vertebral (clinical or morphometric) fracture * T-score of <=-2.5 at the spine or hip * Ten-year fracture probability by FRAX of >= 3% for hip fracture or >=20% for major osteoporotic fracture. Dictated by: Bridger Sherman M.D. on 11/23/2024 at 6:31 Approved by: Bridger Sherman M.D. on 11/23/2024 at 6:32
== END ==
PROVIDERS: PCP Family Medicine; Referring Provider Family Medicine; Visit Provider Family Medicine
DX: M85.89 Other specified disorders of bone density and structure, multiple sites (principal)
CPT/HCPCS: 77080

== ENCOUNTER → 2025-03-07 07:41 | Outpatient (CLI) | payer MEDICARE, SELFPAY ==
[2025-03-07 08:24] LABS: Alanine Aminotransferase 33 IU/L (<35); Albumin 4.4 g/dL (3.5-5.0); Albumin Globulin Ratio 1.9 (1.0-2.8); Alkaline Phosphatase 70 U/L (38-126); Aspartate Aminotransferase 31 IU/L (14-36); BUN Creatinine Ratio 15.9 (6-22); Bilirubin Total 0.6 mg/dL (0.2-1.3); Blood Urea Nitrogen 11 mg/dL (7-17); Calcium 9.8 mg/dL (8.4-10.2); Carbon Dioxide 29 mmol/L (22-32); Chloride 103 mmol/L (98-107); Cholesterol 218 mg/dL (140-199); Estimated Glomerular Filt Rate > 60 mL/min (>60); Globulin 2.3 g/dL (1.7-4.1); Glucose 103 mg/dL (70-99); HDL Cholesterol 87 mg/dL (40-60); HEMOLYSIS < 15 (0-50); LDL Cholesterol Calculated 90 mg/dL (<100); Potassium 4.2 mmol/L (3.4-5.1); Sodium 138 mmol/L (137-145); Total Protein 6.7 g/dL (6.3-8.2); Triglycerides 206 mg/dL (35-150)
[2025-03-07 09:09] LABS: Hep C Virus Ab w/Reflex Quant NEGATIVE s/c (NEGATIVE)
[2025-03-07 23:36] LABS: Hepatitis BE Antigen Negative (Negative)
== END ==
PROVIDERS: PCP Family Medicine; Referring Provider Family Medicine; Visit Provider Family Medicine
DX: R74.8 Abnormal levels of other serum enzymes (principal)
CPT/HCPCS: 36415; 80053; 80061; 86803; 87350